=== PATIENT | male | born 1930 | race Caucasian/White ===

== ENCOUNTER 2017-08-07 09:08 | Emergency (ER) | payer MEDICARE, OTHER ==
[2017-08-07] MEDS ORDERED: Prochlorperazine 10 MG/2 ML VIAL ONE (09:39)
[2017-08-07] MEDS ORDERED: diphenhydrAMINE 50 MG/ML VIAL ONE (09:39)
[2017-08-07 10:04] LABS: ALT (SGPT) 16 U/L (8-55); AST (SGOT) 23 U/L (5-34); Albumin 3.7 g/dL (3.4-4.8); Alkaline Phosphatase 82 U/L (40-150); Anion Gap 12 mmol/L (10-20); BUN (Urea Nitrogen) 11 mg/dL (8.4-25.7); Bilirubin, Total 0.3 mg/dL (0.2-1.2); Calc. Creatinine Clearance 0 mL/min (70-130); Calcium 9.4 mg/dL (7.8-10.44); Carbon Dioxide 28 mmol/L (23-31); Chloride 100 mmol/L (98-107); Estimated GFR-MDRD 79; Globulin 4.5 g/dL (2.4-3.5); Glucose 108 mg/dL (83-110); Lipase 9 U/L (8-78); Potassium 4.3 mmol/L (3.5-5.1); Protein, Total 8.2 g/dL (5.8-8.1); Sodium 136 mmol/L (136-145)
[2017-08-07 10:05] LABS: CKMB 2.8 ng/mL (0-6.6); Troponin I 0.022 ng/mL (< 0.028)
[2017-08-07 10:24] LABS: Hemoglobin 11.4 g/dL (14.0-18.0); Mean Corpuscular Hemoglobin 29.6 pg (27.0-31.0); Mean Corpuscular Volume 84.5 fL (80.0-94.0); Red Blood Cell (RBC) Count 3.87 mill/uL (4.70-6.10); White Blood Cell (WBC) Count 8.5 thou/uL (4.8-10.8)
[2017-08-07 10:25] LABS: #Basophils 0.1 thou/uL (0.0-0.2); #Eosinphils 0.1 thou/uL (0.0-0.7); #Lymphocytes 1.8 thou/uL (1.20-3.40); #Monocytes 0.9 thou/uL (0.11-0.59); #Neutrophils 5.7 thou/uL (1.40-6.50); %Basophils 0.7 % (0.0-1.0); %Eosinophils 1.1 % (0.0-10.0); %Lymphocytes 21.4 % (21.0-51.0); %Monocytes 10.3 % (0.0-10.0); %Neutrophils 66.5 % (42.0-75.0); Mean Corpuscular HGB CONC 35.1 g/dL (32.0-36.0); Mean Platelet Volume 6.4 fL (7.4-10.4); Platelet Count 253 thou/uL (130-400); RBC Distribution Width 11.7 % (11.5-14.5)
[2017-08-07 10:31] LABS: Bilirubin Negative (Negative); Blood, Urine Large (Negative); Clarity Cloudy (Clear); Glucose, Urine (Dipstick) Negative (Negative); Leukocyte Moderate (Negative); Nitrite Negative (Negative); Protein, Urine (Dipstick) 100 mg/dL (Neg-Trace); Specific Gravity, Urine 1.015 (1.005-1.030); Urobilinogen 0.2 mg/dL (0.2-1.0); pH, Urine 8.5 (5.0-9.0)
[2017-08-07 10:47] LABS: Bacteria/HPF 1+ HPF (None Seen); Crystals/HPF 2+ AMORPH PHOS HPF (Negative); RBC/HPF 21-50 HPF (0-3); Squamous Epithelial 0-3 HPF (0-3)
--- NOTE | 2017-08-07 17:28 | CT ---
CT ABDOMEN AND PELVIS WITH CONTRAST 08/07/[address] of the abdomen and pelvis was performed for evaluation of nausea and vomiting in this patie nt with known prostate cancer. Axial slices were acquired followed by coronal reconstructions. The lung bases are clear except for some mild atelectasis. There are no effusions of concern. The liver, spleen, and pancreas showed no acute changes. Several small cysts are seen associated with the liver. Gallstones are present in the gallbladder without any wall thickening or inflammatory isamar nge around it. The aorta shows calcification but no aneurysm of concern. The adrenal glands are unrem arkable. The right is a little more nodular than the left. Right hydronephrosis is present to a moderate degree. I do not see any renal or ureteral calculi. Arturo al cysts are noted bilaterally. The bowel is nondistended but there is abundant fecal material in the colon. There are no inflammator y changes around bowel. No free air or free fluid was seen. A hiatal hernia is present. CT of the pelvis was remarkable for a very large irregular, inhomogeneous prostate consistent with th e clinical history of prostate cancer. The prostate is at least 6.8 cm in diameter. A [place] catheter is in the bladder, but the wall is quit thick suggesting chronic outlet obstruction. The slightly dil ated right ureter can be traced all the way to its termination in the bladder without obvious obstruc ting causes. No free fluid or inflammatory change was seen in the pelvis. The bony pelvis and lumbar spine showed degenerative changes but no bony destructive lesions. IMPRESSION: 1. Mild to moderate right hydronephrosis. 2. Very large irregular prostate. 3. Thick walled urinary bladder. 4. Gallstones. 5. Hiatal hernia. POS: HOME
== END 2017-08-07 12:27 ==
LOC: BURERS 09:08
DX: N39.0 Urinary tract infection, site not specified (principal); K21.9 Gastro-esophageal reflux disease without esophagitis; G40.909 Epilepsy, unspecified, not intractable, without status epilepticus; F03.90 Unspecified dementia, unspecified severity, without behavioral disturbance, psychotic disturbance, mood disturbance, and anxiety; I11.0 Hypertensive heart disease with heart failure; I50.9 Heart failure, unspecified; J44.9 Chronic obstructive pulmonary disease, unspecified; I48.91 Unspecified atrial fibrillation; E78.5 Hyperlipidemia, unspecified; Z79.899 Other long term (current) drug therapy
CPT/HCPCS: 74177; 80053; 81003; 81015; 82553; 83605; 83690; 84484; 85025; 87077; 87086; 87186; 93005; 96374; 96375; J0780; J1200